=== PATIENT | female | born 1985 | race Caucasian/White ===

== ENCOUNTER 2018-11-05 03:45 | Observation (INO) | payer BC, MEDICAID ==
[~2018-11-05] VITALS: Ht 162.6 cm; Wt 83.0 kg
[2018-11-05 04:11] VITALS: BP 114/57
== END 2018-11-05 06:45 | disposition home or self-care (01) ==
LOC: LDOP 03:45 → LDIP 05:40 → UNDOADMOB 07:11 → LDOP 07:11 → LDIP 07:11 → LDOP 08:39
PROVIDERS: ADMIT Obstetrics & Gynecology; ATTEND Obstetrics & Gynecology
DX: O26.893 Other specified pregnancy related conditions, third trimester (principal); R50.9 Fever, unspecified; Z3A.32 32 weeks gestation of pregnancy; Z88.0 Allergy status to penicillin; Z88.1 Allergy status to other antibiotic agents
CPT/HCPCS: 36415; 59025; 80053; 81001; 85025; 87086; 99211; G0378; G0463

== ENCOUNTER 2019-05-23 10:07 | Emergency (ER) | payer OTHER, MEDICAID ==
[~2019-05-23] VITALS: Ht 162.6 cm; Wt 83.5 kg
[~2019-05-23 10:07] MED LIST: IBUP-1222 PO
[2019-05-23] MEDS ORDERED: ONDANSETRON 2MG/ML, 2ML ONE (10:28)
[2019-05-23] MEDS ORDERED: DIPHENHYDRAMINE 50 MG/ML, 1ML ONE (10:28)
[2019-05-23] MEDS ORDERED: METOCLOPRAMIDE 5 MG/ML, 2ML ONE (10:28)
[2019-05-23] MEDS ORDERED: KETOROLAC 30 MG/1 ML ONE (10:28)
[2019-05-23] MEDS ORDERED: SODIUM CHLORIDE 0.9% 1,000ML IVBOLUS ONE (10:30)
[2019-05-23] MEDS ORDERED: METOCLOPRAMIDE 5 MG/ML, 2ML IVPush ONE (10:30)
[2019-05-23] MEDS ORDERED: DIPHENHYDRAMINE 50 MG/ML, 1ML IVPush ONE (10:30)
--- NOTE | 2019-05-23 10:51 | NUR ---
CARRIE IN ROOM FOR EVAL. LINE/LABS/MEDS PER JUN. PLAN FOR US. CALL [facility] IN REACH. CALM, COOPERATIVE.
[2019-05-23 11:04] LABS: BASOPHILS # (AUTO) 0.04 x10^3/uL (0-0.1); BASOPHILS % (AUTO) 1 % (0-1); EOSINOPHILS # (AUTO) 0.05 x10^3/uL (0-0.4); EOSINOPHILS % (AUTO) 1 % (1-7); LYMPHOCYTES # (AUTO) 2.19 x10^3/uL (1-3.4); LYMPHOCYTES % (AUTO) 28 % (22-44); MD NO; MEAN CORPUSCULAR HEMOGLOBIN 31.1 pg (27.0-34.8); MEAN CORPUSCULAR HGB CONC 34.1 g/dL (32.4-35.8); MEAN PLATELET VOLUME 7.7 fL (7.4-10.4); MONOCYTES # (AUTO) 0.51 x10^3/uL (0.2-0.8); MONOCYTES % (AUTO) 7 % (2-9); NEUTROPHILS # (AUTO) 5.12 x10^3/uL (1.8-6.8); NEUTROPHILS % (AUTO) 65 % (42-75); PLATELET COUNT 285 x10^3/uL (130-400); RED BLOOD COUNT 4.95 x10^6/uL (3.82-5.3); RED CELL DISTRIBUTION WIDTH 12.3 % (9.6-15.2)
[2019-05-23 11:11] LABS: ALBUMIN 4.1 g/dL (3.4-5.0); ANION GAP 5 mmol/L (5-15); CALCIUM 9.1 mg/dL (8.5-10.1); CHLORIDE 109 mmol/L (98-107); CREATININE 0.68 mg/dL (0.55-1.02)
[2019-05-23 11:51] VITALS: BP 115/69
--- NOTE | 2019-05-23 11:52 | NUR ---
RESULTS NEG DAYO IN ROOM TBDC.
== END 2019-05-23 12:19 | disposition home or self-care (01) ==
LOC: ED 12:15
DX: O03.9 Complete or unspecified spontaneous abortion without complication (principal); G43.009 Migraine without aura, not intractable, without status migrainosus
CPT/HCPCS: 36415; 76830; 80048; 82040; 84702; 85025; 96374; 96375; 99284; J1200; J2765; J7030

== ENCOUNTER 2019-12-30 18:05 | Emergency (ER) | payer MEDICAID, OTHER ==
[~2019-12-30] VITALS: Ht 162.6 cm; Wt 88.9 kg
--- NOTE | 2019-12-30 18:27 | NUR ---
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 JUMANA
[2019-12-30 18:47] LABS: BASOPHILS # (AUTO) 0.01 x10^3/uL (0-0.1); BASOPHILS % (AUTO) 0 % (0-1); EOSINOPHILS # (AUTO) 0.04 x10^3/uL (0-0.4); EOSINOPHILS % (AUTO) 1 % (1-7); LYMPHOCYTES # (AUTO) 2.39 x10^3/uL (1-3.4); LYMPHOCYTES % (AUTO) 31 % (22-44); MD NO; MEAN CORPUSCULAR HEMOGLOBIN 27.4 pg (27.0-34.8); MEAN CORPUSCULAR HGB CONC 32.6 g/dL (32.4-35.8); MEAN CORPUSCULAR VOLUME 84.1 fL (80-100); MEAN PLATELET VOLUME 8.1 fL (7.4-10.4); MONOCYTES % (AUTO) 7 % (2-9); NEUTROPHILS # (AUTO) 4.81 x10^3/uL (1.8-6.8); NEUTROPHILS % (AUTO) 62 % (42-75); PLATELET COUNT 199 x10^3/uL (130-400); RED BLOOD COUNT 4.26 x10^6/uL (3.82-5.3); RED CELL DISTRIBUTION WIDTH 14.3 % (9.6-15.2)
[2019-12-30 18:54] LABS: ALANINE AMINOTRANSFERASE 12 U/L (12-78); ALBUMIN 2.8 g/dL (3.4-5.0); ANION GAP 10 mmol/L (5-15); CALCIUM 8.9 mg/dL (8.5-10.1); CHLORIDE 111 mmol/L (98-107)
[2019-12-30 18:56] LABS: ALKALINE PHOSPHATASE 103 U/L (45-117); BILIRUBIN,TOTAL 0.4 mg/dL (0.2-1.0); CREATININE 0.45 mg/dL (0.55-1.02); TOTAL PROTEIN 6.4 g/dL (6.4-8.2)
[2019-12-30] MEDS ORDERED: SODIUM CHLORIDE FLUSH 10ML SYR IVF ONE (19:00)
[2019-12-30] MEDS ORDERED: SODIUM CHLORIDE 0.9% 1,000ML IVBOLUS ONE (19:00)
[2019-12-30 19:51] LABS: MICROSCOPIC INDICATED
--- NOTE | 2019-12-30 21:14 | NUR ---
PT IN CT FOR CTA
[2019-12-30] MEDS ORDERED: OMNIPAQUE 350 MG/ML, 100ML BOTTLE ONE (21:24)
--- NOTE | 2019-12-30 21:51 | NUR ---
PT STATED "SHE HAD A LITTLE NAUSEA AND IT MIGHT BE A INDICATOR FOR HER BLOOD SUGAR BEING LOW". FINGER STICK B/S 71. PROVIDER NOTIFIED AND PT PROVIDED JUICE AND SMALL MEAL
[2019-12-30 22:50] VITALS: BP 108/67
== END 2019-12-30 22:53 | disposition home or self-care (01) ==
LOC: ED 18:35
DX: O26.893 Other specified pregnancy related conditions, third trimester (principal); R00.0 Tachycardia, unspecified; R06.00 Dyspnea, unspecified; Z3A.33 33 weeks gestation of pregnancy
CPT/HCPCS: 36415; 71045; 71275; 80053; 81001; 82962; 85025; 87086; 93005; 93970; 96360; 99285; J7030; Q9967

== ENCOUNTER → 2019-12-31 | Outpatient (CLI) | payer OTHER, MEDICAID | END | disposition home or self-care (01) | LOC: CVU 07:14 | PROVIDERS: ATTEND Internal Medicine Cardiovascular Disease | DX: D68.61 Antiphospholipid syndrome (principal); R06.9 Unspecified abnormalities of breathing; R00.2 Palpitations; R00.0 Tachycardia, unspecified | CPT/HCPCS: 93306; 93356 ==

== ENCOUNTER 2020-01-21 09:56 | Outpatient (CLI) | payer OTHER, MEDICAID ==
[~2020-01-21] VITALS: Ht 162.6 cm; Wt 88.2 kg
[2020-01-21 10:24] VITALS: BP 116/62
[2020-01-21 11:05] LABS: MICROSCOPIC INDICATED
== END 2020-01-21 12:03 | disposition home or self-care (01) ==
LOC: LDOP 09:56
PROVIDERS: ATTEND Obstetrics & Gynecology
DX: O09.93 Supervision of high risk pregnancy, unspecified, third trimester (principal); O26.893 Other specified pregnancy related conditions, third trimester; R10.9 Unspecified abdominal pain; Z3A.35 35 weeks gestation of pregnancy
CPT/HCPCS: 36415; 59025; 81001; 82239; 87086

== ENCOUNTER → 2020-02-10 | Outpatient (CLI) | payer OTHER, MEDICAID | END | disposition home or self-care (01) | LOC: STAR 11:24 | PROVIDERS: ATTEND Obstetrics & Gynecology | DX: Z01.812 Encounter for preprocedural laboratory examination (principal); Z20.828 Contact with and (suspected) exposure to other viral communicable diseases | CPT/HCPCS: 36415; 87635 ==

== ENCOUNTER 2020-02-13 09:43 | Inpatient (IN) | payer OTHER, MEDICAID ==
[~2020-02-13] VITALS: Ht 162.6 cm; Wt 88.0 kg
[2020-02-13] MEDS ORDERED: OXYTOCIN 30U/ 0.9% NaCL 500ML 500 ML IV ONE (10:30)
[2020-02-13] MEDS ORDERED: TERBUTALINE 1 MG/ML, 1ML IVPush PRN (10:30)
[2020-02-13] MEDS ORDERED: OXYTOCIN 30U/ 0.9% NaCL 500ML 500 ML IV PRN (10:30)
[2020-02-13] MEDS ORDERED: ALUMINUM/MAG/SIMETHICONE 30 ML UDC PO PRN (10:30)
[2020-02-13] MEDS ORDERED: SODIUM CITRATE/CITRIC ACID 30 ML UDC PO PRN (10:30)
[2020-02-13] MEDS ORDERED: MISOPROSTOL 25 MCG TABLET VG PRN (10:30)
[2020-02-13] MEDS ORDERED: TERBUTALINE 1 MG/ML, 1ML SQ PRN (10:30)
[2020-02-13] MEDS ORDERED: PLEASE ENTER HEIGHT AND WEIGHT MC SCH (10:30)
[2020-02-13 11:15] LABS: BASOPHILS % (AUTO) 1 % (0-1); EOSINOPHILS % (AUTO) 0 % (1-7); LYMPHOCYTES % (AUTO) 24 % (22-44); MEAN CORPUSCULAR HEMOGLOBIN 25.6 pg (27.0-34.8); MEAN CORPUSCULAR HGB CONC 32.6 g/dL (32.4-35.8); MEAN PLATELET VOLUME 8.1 fL (7.4-10.4); MONOCYTES % (AUTO) 7 % (2-9); NEUTROPHILS % (AUTO) 68 % (42-75); PLATELET COUNT 174 x10^3/uL (130-400); RED BLOOD COUNT 4.42 x10^6/uL (3.82-5.3); RED CELL DISTRIBUTION WIDTH 15.9 % (9.6-15.2)
[2020-02-13 11:18] LABS: MD NO
[2020-02-13] MEDS: LACTATED RINGERS 1,000 ML IV SCH ×3 (11:30→21:35)
[2020-02-13] MEDS ORDERED: OXYTOCIN 30U/ 0.9% NaCL 500ML 500 ML ONE (11:38)
[2020-02-13] MEDS ORDERED: MISOPROSTOL 200 MCG TABLET ONE (11:38)
[2020-02-13] MEDS ORDERED: NEWBORN KIT ONE (11:38)
[2020-02-13] MEDS ORDERED: MISOPROSTOL 25 MCG TABLET ONE (11:38)
[2020-02-13] MEDS ORDERED: LIDOCAINE 1%, 20ML ONE (11:38)
[2020-02-13 16:15] LABS: INTERNATIONAL NORMALIZED RATIO 1.28 (0.93-1.1); PROTHROMBIN TIME 13.5 Seconds (9.6-11.5)
[2020-02-13 19:17] VITALS: BP 114/63
[2020-02-13] MEDS: FENTANYL PF 100 MCG/2ML IVPush PRN ×2 (19:30→19:35)
[2020-02-13] MEDS ORDERED: FENTANYL PF 100 MCG/2ML ONE (19:32)
[2020-02-13] MEDS ORDERED: FENTANYL/BUPIV./NS/PF 250 ML EPIDCONT SCH (20:30)
[2020-02-13] MEDS ORDERED: LACTATED RINGERS 1,000 ML IVBOLUS PRN (20:30)
[2020-02-13] MEDS: D5%-LACTATED RINGERS 1,000 ML IV SCH (20:30)
[2020-02-13] MEDS ORDERED: NALOXONE 0.4 MG/ML, 1ML IVPush PRN (20:30)
[2020-02-13] MEDS ORDERED: EPHEDRINE 50 MG/ML, 1ML IVPush PRN (20:30)
[2020-02-13] MEDS ORDERED: CALCIUM CARBONATE 500 MG TAB.CHEW ONE (22:39)
[2020-02-13] MEDS: CALCIUM CARBONATE 500 MG TAB.CHEW PO PRN (22:42)
[2020-02-14] MEDS: D5%-LACTATED RINGERS 1,000 ML IV SCH ×4 (04:30→23:06)
[2020-02-14] MEDS ORDERED: ONDANSETRON 2MG/ML, 2ML ONE (04:59)
[2020-02-14] MEDS: ONDANSETRON 2MG/ML, 2ML IVPush PRN (05:01)
[2020-02-14] MEDS: LACTATED RINGERS 1,000 ML IV SCH ×6 (05:06→20:30)
[2020-02-14] MEDS ORDERED: CALCIUM CARBONATE 500 MG TAB.CHEW ONE (16:42)
[2020-02-14] MEDS: CALCIUM CARBONATE 500 MG TAB.CHEW PO PRN (16:43)
[2020-02-14] MEDS ORDERED: OXYTOCIN 30U/ 0.9% NaCL 500ML 500 ML IV PRN (17:00)
[2020-02-14] MEDS ORDERED: OMEPRAZOLE 20 MG CAPSULE.DR PO ONE (17:00)
[2020-02-14] MEDS ORDERED: FENTANYL PF 100 MCG/2ML ONE ×2 (18:28→21:31)
[2020-02-14] MEDS: FENTANYL PF 100 MCG/2ML IVPush PRN (18:46)
[2020-02-14] MEDS: FENTANYL PF 100 MCG/2ML IV PRN ×2 (21:37→23:08)
[2020-02-15] MEDS: D5%-LACTATED RINGERS 1,000 ML IV SCH ×3 (04:30→20:30)
[2020-02-15] MEDS: LACTATED RINGERS 1,000 ML IV SCH ×6 (04:30→20:30)
[2020-02-15] MEDS ORDERED: NALOXONE 0.4 MG/ML, 1ML IVPush PRN (07:00)
[2020-02-15] MEDS ORDERED: REMIFENTANIL 3 MG in SODIUM CHLORIDE 0.9% 30 ML IV PRN (07:00)
[2020-02-15] MEDS ORDERED: OXYTOCIN 30U/ 0.9% NaCL 500ML 500 ML ONE ×2 (09:01→18:35)
[2020-02-15] MEDS ORDERED: FENTANYL PF 100 MCG/2ML ONE ×4 (11:53→17:31)
[2020-02-15] MEDS: FENTANYL PF 100 MCG/2ML IV PRN ×2 (11:56→16:42)
[2020-02-15] MEDS ORDERED: ONDANSETRON 2MG/ML, 2ML ONE (13:11)
[2020-02-15] MEDS: ONDANSETRON 2MG/ML, 2ML IVPush PRN (13:13)
[2020-02-15] MEDS ORDERED: ONDANSETRON 2MG/ML, 2ML IV PRN (19:00)
[2020-02-15] MEDS ORDERED: OXYcodone IR 5MG TABLET PO PRN (19:00)
[2020-02-15] MEDS: OXYTOCIN 30U/ 0.9% NaCL 500ML 500 ML IV SCH (19:00)
[2020-02-15] MEDS ORDERED: IBUPROFEN 800 MG TABLET PO PRN (19:00)
[2020-02-15] MEDS ORDERED: ACETAMINOPHEN 325 MG TABLET PO PRN (19:00)
[2020-02-15] MEDS ORDERED: DOCUSATE 100 MG CAPSULE PO PRN (19:00)
[2020-02-15] MEDS ORDERED: MISOPROSTOL 200 MCG TABLET PR ONE (19:00)
[2020-02-15] MEDS ORDERED: SIMETHICONE 80 MG CHEW TAB PO PRN (19:00)
[2020-02-15] MEDS ORDERED: METHYLERGONOVINE 0.2 MG/ML IM PRN (19:00)
[2020-02-15] MEDS ORDERED: CARBOPROST TROMETHAMINE 250 MCG/ML, 1ML IM PRN (19:00)
[2020-02-15] MEDS ORDERED: OXYTOCIN 10 UNITS/ML, 1ML IM PRN (19:00)
[2020-02-15] MEDS ORDERED: OXYcodone/APAP 5/325MG TABLET ONE (19:53)
[2020-02-15] MEDS: OXYcodone/APAP 5/325MG TABLET PO PRN (19:55)
[2020-02-15 20:39] LABS: BASOPHILS % (AUTO) 1 % (0-1); EOSINOPHILS % (AUTO) 0 % (1-7); LYMPHOCYTES % (AUTO) 10 % (22-44); MEAN CORPUSCULAR HEMOGLOBIN 25.3 pg (27.0-34.8); MEAN CORPUSCULAR HGB CONC 32.6 g/dL (32.4-35.8); MEAN PLATELET VOLUME 8.5 fL (7.4-10.4); MONOCYTES % (AUTO) 5 % (2-9); NEUTROPHILS % (AUTO) 84 % (42-75); PLATELET COUNT 156 x10^3/uL (130-400); RED BLOOD COUNT 4.05 x10^6/uL (3.82-5.3); RED CELL DISTRIBUTION WIDTH 15.9 % (9.6-15.2)
[2020-02-15] MEDS ORDERED: ACETAMINOPHEN 650 MG SUPP PR PRN (21:00)
[2020-02-15 21:28] LABS: D-DIMER 4.66 ug/mlFEU (0.00-0.52)
[2020-02-15 21:29] LABS: MD SCAN
[2020-02-15] MEDS ORDERED: ONDANSETRON 2MG/ML, 2ML IVPush PRN (21:30)
[2020-02-15] MEDS ORDERED: CARBOPROST TROMETHAMINE 250 MCG/ML, 1ML IM ONE (21:30)
[2020-02-15] MEDS ORDERED: LOPERAMIDE 2 MG CAPSULE ONE (21:53)
[2020-02-15 22:00] VITALS: BP 121/80
[2020-02-15] MEDS ORDERED: LOPERAMIDE 2 MG CAPSULE PO ONE (22:00)
[2020-02-15] MEDS ORDERED: METOCLOPRAMIDE 5 MG/ML, 2ML ONE (22:47)
[2020-02-15 22:55] VITALS: BP 112/79
[2020-02-15] MEDS ORDERED: METOCLOPRAMIDE 5 MG/ML, 2ML IVPush PRN (23:00)
[2020-02-16 00:05] VITALS: BP 130/85
[2020-02-16 01:50] VITALS: BP 113/71
[2020-02-16] MEDS: OXYcodone/APAP 5/325MG TABLET PO PRN ×4 (02:09→16:14)
[2020-02-16 02:43] LABS: BASOPHILS % (AUTO) 0 % (0-1); EOSINOPHILS % (AUTO) 0 % (1-7); LYMPHOCYTES % (AUTO) 11 % (22-44); MEAN CORPUSCULAR HEMOGLOBIN 25.9 pg (27.0-34.8); MEAN PLATELET VOLUME 8.5 fL (7.4-10.4); MONOCYTES % (AUTO) 4 % (2-9); NEUTROPHILS % (AUTO) 85 % (42-75); PLATELET COUNT 166 x10^3/uL (130-400); RED BLOOD COUNT 4.36 x10^6/uL (3.82-5.3); RED CELL DISTRIBUTION WIDTH 15.6 % (9.6-15.2)
[2020-02-16 02:47] LABS: MD NO
[2020-02-16 04:15] VITALS: BP 97/60
[2020-02-16] MEDS: D5%-LACTATED RINGERS 1,000 ML IV SCH (04:30)
[2020-02-16] MEDS: LACTATED RINGERS 1,000 ML IV SCH ×4 (04:30→12:32)
[2020-02-16] MEDS: OXYTOCIN 30U/ 0.9% NaCL 500ML 500 ML IV SCH ×2 (05:00→15:18)
[2020-02-16 06:26] LABS: BASOPHILS % (AUTO) 0 % (0-1); EOSINOPHILS % (AUTO) 0 % (1-7); LYMPHOCYTES % (AUTO) 19 % (22-44); MEAN CORPUSCULAR HEMOGLOBIN 25.9 pg (27.0-34.8); MEAN CORPUSCULAR HGB CONC 33.5 g/dL (32.4-35.8); MEAN PLATELET VOLUME 8.7 fL (7.4-10.4); MONOCYTES % (AUTO) 7 % (2-9); NEUTROPHILS % (AUTO) 75 % (42-75); PLATELET COUNT 155 x10^3/uL (130-400); RED BLOOD COUNT 3.88 x10^6/uL (3.82-5.3); RED CELL DISTRIBUTION WIDTH 15.5 % (9.6-15.2)
[2020-02-16 06:48] LABS: MD NO
[2020-02-16 08:00] VITALS: BP 97/63
[2020-02-16] MEDS ORDERED: PRENATAL VIT/IRON/FA 1 EACH TABLET PO SCH (09:00)
[2020-02-16 12:06] VITALS: BP 106/68
[2020-02-16] MEDS ORDERED: IBUP-1223 PO (15:24)
[2020-02-16] MEDS ORDERED: PREN1TAB98 PO (15:25)
[2020-02-16 16:06] VITALS: BP 96/61
== END 2020-02-16 18:10 | disposition home or self-care (01) | DRG 806 ==
LOC: LDIP 09:43 → 2NW 02-15 20:03
PROVIDERS: ADMIT Obstetrics & Gynecology; ATTEND Obstetrics & Gynecology
PROC: 10E0XZZ Delivery of Products of Conception, External Approach (ICD-10-PCS; principal; 2020-02-15)
PROC: 0KQM0ZZ Repair Perineum Muscle, Open Approach (ICD-10-PCS; 2020-02-15)
PROC: 3E033VJ Introduction of Other Hormone into Peripheral Vein, Percutaneous Approach (ICD-10-PCS; 2020-02-15)
DX: O40.3XX0 Polyhydramnios, third trimester, not applicable or unspecified (principal); O72.1 Other immediate postpartum hemorrhage; Z37.0 Single live birth; O24.420 Gestational diabetes mellitus in childbirth, diet controlled; Z3A.38 38 weeks gestation of pregnancy; O70.1 Second degree perineal laceration during delivery; Z88.8 Allergy status to other drugs, medicaments and biological substances
CPT/HCPCS: 36415; 86849; J7121; 76815; 82962; 85025; 85379; 85384; 85610; 85730; 86592; 86850; 86900; 93005; G0378; J2405; J3010; J2210; J2590; J2765; J7120